=== PATIENT | female | born 1935 | race Caucasian/White ===

== ENCOUNTER → 2016-12-29 | Outpatient (CLI) | payer OTHER | LOC: FIMAGING 08:12 | PROVIDERS: ATTEND Physician Assistant Medical | DX: Z12.31 Encounter for screening mammogram for malignant neoplasm of breast (principal) | CPT/HCPCS: G0202 ==

== ENCOUNTER 2017-11-13 14:28 | Inpatient (IN) | payer OTHER ==
[2017-11-13] MEDS ORDERED: ceFAZolin 2 GM in NS 100 ML IV ONE (17:11)
[2017-11-13 17:18] LABS: PLATELET COUNT 309 10^3/uL (150-400)
[2017-11-13] MEDS ORDERED: IOPAMIDOL (ISOVUE 370) 100 ML BTL IV ONE (17:23)
[2017-11-13] MEDS ORDERED: NS 1,000 ML IV ONE (17:49)
[2017-11-13] MEDS ORDERED: ceFAZolin 2 GM/DEXTROSE 100 ML IV ONE (18:00)
--- NOTE | 2017-11-13 18:06 | EDPHY ---
H & P Stated Complaint: mech fall R shoulder/throat injury - Personal History Current Tetanus/Diphtheria Vaccine: Unsure Current Tetanus Diphtheria and Acellular Pertussis (TDAP): Unsure - Medical/Surgical History Hx Asthma: No Hx Chronic Respiratory Disease: No Hx Diabetes: Yes Hx Cardiac Disease: Yes Hx Renal Disease: No Hx Alcoholism: No Hx HIV/AIDS: No Hx Splenectomy or Spleen Trauma: No Other PMH: HTN, HYPERLIPIDS. HYST. MACULAR DEGENERATION - Social History Smoking Status: Never smoked Time Seen by Provider: 11/13/17 17:00 HPI/ROS: Chief complaint: Neck injury History of present illness: This is an 82-year-old female who presents to the emergency department for evaluation of a neck injury. Patient tripped and fell onto her right arm and then onto a pair of garden nathalie that stabbed her in the neck. She sustained a small cut to the anterior neck at the level of the thyroid. Initially she felt some gurgling. The wound is sealed itself back up. However whenever she speaks the area starts to swell up. She denies other associated symptoms including no other injuries. No cough, no trouble breathing , no trouble swallowing. Her tetanus is up-to-date. Review of systems: A 10 point review of systems was obtained and other than described above (Hai Singh) - Physical Exam Exam: General Appearance: Alert, nontoxic Eyes: PERRLA ENT: Patient is speaking well. No drooling. No coughing. No blood in the oropharynx. Respiratory: Lungs clear to auscultation bilaterally. Cardiac: Regular rate and rhythm. Gastrointestinal: Soft, nondistended, nontender. Neurological: Alert and oriented x4. Strength and sensation intact and symmetrical. Skin: Patient has a small less than 1 cm puncture wound to the anterior neck at the level of the thyroid. There is surrounding soft tissue edema. 1 cm laceration over the olecranon region of the right elbow. No foreign body contamination appreciated. Musculoskeletal: The neck is supple. Spine is nontender to palpation. Patient moving extremities well. (Hai Singh) Constitutional: Initial Vital Signs Temperature (C) 36.6 C 11/13/17 14:41 Heart Rate 109 H 11/13/17 14:41 Respiratory Rate 16 11/13/17 14:41 Blood Pressure 181/95 H 11/13/17 14:41 O2 Sat (%) 96 11/13/17 14:41 O2 Delivery Mode Room Air Allergies/Adverse Reactions: No Known Allergies Allergy (Unverified 11/13/17 14:40) Home Medications: Medication Instructions Recorded Aspirin [Aspirin 81mg (*)] 81 mg PO DAILY 11/13/17 Losartan Potassium [Losartan 25 mg PO DAILY 11/13/17 Potassium] Rosuvastatin Calcium [Rosuvastatin 5 mg PO DAILY 11/13/17 Calcium] Sulfamethoxazole/Trimethoprim 1 tab PO BID 11/13/17 [Sulfamethoxazole-Tmp Ds Tablet] Triamterene/Hctz 37.5/25 0.5 mg PO DAILY 11/13/17 [Maxzide-25 (*)] amLODIPine BESYLATE [Norvasc 5 mg 5 mg PO DAILY 11/13/17 (*)] metFORMIN HCL [Metformin HCl] 1,000 mg PO BIDMEAL 11/13/17 Medical Decision Making - Diagnostics Imaging: Discussed imaging studies w/ call worker person Radiologist, I viewed and interpreted images myself - Diagnostics Imaging Results: Imaging Impressions Neck CTA 11/13/17 17:05 Impression: 1. Puncture wound anterior midline neck soft tissues at the level of the subglottic trachea, with likely puncture site at this region. 2. No evidence of arterial or venous vascular injury. 3. Bilateral carotid atherosclerotic disease resulting in mild 40-50% diameter stenosis. 4. Bilateral external carotid artery branches are just lateral to the puncture site, without evidence of active extravasation or focal neck hematoma. 5. Probably benign right thyroid nodule. 6. Extensive pneumomediastinum extending from the skull base through the neck surrounding the visceral space and extending into the mediastinum at the tracheal bifurcation. Findings and recommendations discussed with Emergency Department Physician Assembler [employer], EDGARD Ordaz, at 1810 hours, on November 13, 2017. Final report concurs with initial preliminary interpretation. Measurement of carotid stenosis is based on the residual internal carotid diameter with [place] Symptomatic Carotid Endarterectomy Trial (NASCET) based stenosis levels. A test result has been communicated to a licensed care provider and documented in the [employer] Critical Result system on 11/13/2017 18:24, Message ID [id number]. Esophagram Cervical 11/13/17 17:12 Impression: No evidence of esophageal laceration or tear in the neck or upper thoracic region. Chest X-Ray 11/13/17 18:12 Impression: 1. No pneumothorax. 2. Extensive pneumomediastinum extending from the neck through the entire chest. Humerus X-Ray 11/13/17 18:16 Impression: No fracture of the right humerus. Shoulder X-Ray 11/13/17 18:16 Impression: No definite fracture of the right shoulder. Procedures: Procedure: Laceration repair. Verbal consent was obtained from the patient. The 1 cm laceration on the right elbow was anesthetized in the usual fashion. The wound was irrigated, draped and explored to its base with a gloved finger. There were no deep structures involved. No tendon injury was identified. The wound was repaired with 4 0 Ethilon, 2 simple interrupted sutures. The wound repair was simple. The procedure was performed by myself. (Hai Singh) ED Course/Re-evaluation: The patient was evaluated and managed by the physician's assistant clinical director. My cosignature indicates that I reviewed the chart and I agree with the findings and plan of care as documented. I am the secondary supervising physician. ( Valencia Castro) Upon initial evaluation with identification of concern for neck injury ENT was consulted. Rosa EVERETT and Dr. Evans Newsome immediately came to the emergency room to evaluate patient. They scoped the patient. They are recommending a CT AV and barium swallow. This was obtained. Small amount of blood and trachea. Large pneumomediastinum. Chest x-ray further obtained to further characterize this which does show large amount of air. Patient also injured her right arm, x-rays negative. Laceration the right arm is repaired. She remained stable. She will be admitted to the Trauma Services under the care of Dr. Colby Villalta. Plan has been discussed with patient and family who voiced understanding and agreement with it. (Hai Singh) Differential Diagnosis: Included but not limited to soft tissue injury, vascular injury, tracheal injury , esophageal injury (Hai Singh) - Data Points Laboratory Results: Laboratory Results 11/13/17 17:10 11/13/17 11/13/17 17:14 17:10 WBC 13.71 10^3/uL H 10^3/uL (3.80-9.50) RBC 4.60 10^6/uL 10^6/uL (4.18-5.33) Hgb 13.5 g/dL g/dL (12.6-16.3) POC Hgb 15.3 gm/dL gm/dL (12.6-16.3) Hct 40.6 % % (38.0-47.0) POC Hct 45 % % (38-47) MCV 88.3 fL fL (81.5-99.8) MCH 29.3 pg pg (27.9-34.1) MCHC 33.3 g/dL g/dL (32.4-36.7) RDW 14.2 % % (11.5-15.2) Plt Count 309 10^3/uL 10^3/uL (150-400) MPV 9.8 fL fL (8.7-11.7) Neut % (Auto) 80.1 % H % (39.3-74.2) Lymph % (Auto) 13.3 % L % (15.0-45.0) [place] % (Auto) 5.6 % % (4.5-13.0) Eos % (Auto) 0.3 % L % (0.6-7.6) Baso % (Auto) 0.3 % % (0.3-1.7) Nucleat RBC Rel Count 0.0 % % (0.0-0.2) Absolute Neuts (auto) 10.98 10^3/uL H 10^3/uL (1.70-6.50) Absolute Lymphs (auto) 1.82 10^3/uL 10^3/uL (1.00-3.00) Absolute Monos (auto) 0.77 10^3/uL 10^3/uL (0.30-0.80) Absolute Eos (auto) 0.04 10^3/uL 10^3/uL (0.03-0.40) Absolute Basos (auto) 0.04 10^3/uL 10^3/uL (0.02-0.10) Absolute Nucleated RBC 0.00 10^3/uL 10^3/uL (0-0.01) Immature Gran % 0.4 % % (0.0-1.1) Immature Gran # 0.06 10^3/uL 10^3/uL (0.00-0.10) POC Sodium 137 mEq/L mEq/L (135-145) POC Potassium 3.7 mEq/L mEq/L (3.3-5.0) POC Chloride 99 mEq/L mEq/L (97-110) POC BUN 24 mg/dL H mg/dL (7-23) POC Creatinine 1.2 mg/dL H mg/dL (0.6-1.0) POC Glucose 135 mg/dL H mg/dL (70-100) Medications Given: Bacitracin (Bacitracin Ointment Tube) 1 mor TP BID NAVIN Stop: 12/13/17 20:59 Last Admin: 11/13/17 23:16 Dose: Not Given Discontinued Medications Cefazolin Sodium 2 gm/ Sodium (Chloride) 100 mls @ 200 mls/hr IV EDNOW ONE PRN Reason: Protocol Stop: 11/13/17 17:40 Last Admin: 11/13/17 18:29 Dose: 100 mls Sodium Chloride (Ns) 1,000 mls @ 0 mls/hr IV ONCE ONE PRN Reason: Wide Open Stop: 11/13/17 17:50 Last Admin: 11/13/17 18:29 Dose: 1,000 mls Cefazolin Sodium/Dextrose (Ancef 2 Gm) 100 mls @ 200 mls/hr IV ONCE ONE Stop: 11/13/17 18:29 Last Admin: 11/13/17 23:16 Dose: Not Given Point of Care Test Results: Chemistry 11/13/17 17:14 POC Sodium 137 mEq/L mEq/L (135-145) POC Potassium 3.7 mEq/L mEq/L (3.3-5.0) POC Chloride 99 mEq/L mEq/L (97-110) POC BUN 24 mg/dL H mg/dL (7-23) POC Creatinine 1.2 mg/dL H mg/dL (0.6-1.0) POC Glucose 135 mg/dL H mg/dL (70-100) ISTAT H&H 11/13/17 17:14 POC Hgb 15.3 gm/dL gm/dL (12.6-16.3) POC Hct 45 % % (38-47) Departure - Departure Disposition: [facility] Inpatient Acute Clinical Impression: Pneumomediastinum Puncture wound of trachea Qualifiers: Encounter type: initial encounter Qualified Code(s): S11.023A - Puncture wound without foreign body of trachea, initial encounter Elbow laceration Qualifiers: Encounter type: initial encounter Laterality: right Qualified Code(s): S51.011A - Laceration without foreign body of right elbow, initial encounter Condition: Fair
[2017-11-13] MEDS ORDERED: ONDANSETRON 4 MG/2 ML VIAL IVP PRN (18:57)
[2017-11-13] MEDS ORDERED: D5W 1/2 NS W/ 20 KCl/L 1,000 ML IV SCH (19:00)
--- NOTE | 2017-11-13 19:07 | PDGENHP ---
History and Physical - Chief Complaint fall, SW to neck - History of Present Illness 82yo female, visually impaired, presents s/p self-inflicted SW to neck. Briefly , patient was in her garden holding her nathalie. She cannot see well and stumbled falling mostly onto her right side but does state that she rolled somewhat anteriorly with the fall and did impale herself on her nathalie. She was initially unaware of the injury and did not bring it to anyone's attention until she caller her daughter c/o some "gurgling" when she talked. [place] daughter rushed to mother, noted the injury and brought here her for eval. In the ED, consultation from ENT was immediately sought and the patient was scoped where a small anterior injury was identified, no posterior injury noted and the gurgling had stopped. She also underwent CTA and barium swallow prior to my consultation. On my consultation, the patients airway is intact, she is breathing appropriately and unlabored and her circulation is adequate. She c/o R shoulder pain. She states that the "gurgling" she was experiencing previously has resolved and that she has no current complaints. History Information - Allergies/Home Medication List Allergies/Adverse Reactions: No Known Allergies Allergy (Unverified 11/13/17 14:40) Home Medications: Crestor 10/30/13 [Last Taken Unknown] Metformin Sr 10/30/13 [Last Taken Unknown] Triamterene 10/30/13 [Last Taken Unknown] Bactrim DS 11/13/17 [Last Taken Unknown] Lovastatin 11/13/17 [Last Taken Unknown] I have personally reviewed and updated: family history, medical history, social history, surgical history Past Medical History: HTN, HLD, macular degeneration - Surgical History Additional surgical history: hyst - Family History Positive for: non-pertinent - Social History Smoking Status: Never smoked Alcohol Use: Sober Drug Use: None Additional social history: lives alone, walks a lot, does not drive 2/2 vision Review of Systems Review of Systems: ROS: 10pt was reviewed & negative except for what was stated in HPI & below Physical Exam Physical Exam: Temp Pulse Resp BP Pulse Ox 36.6 C 102 H 18 173/106 H 97 11/13/17 14:41 11/13/17 18:30 11/13/17 18:30 11/13/17 18:30 11/13/17 18:43 O2 (L/minute) 2 Constitutional: no apparent distress, appears nourished, not in pain Eyes: PERRL, anicteric sclera, EOMI Ears, Nose, Mouth, Throat: moist mucous membranes, hearing normal, ears appear normal, no oral mucosal ulcers, other (small ant neck lac 1cm, zone 2, no gurgling, no hematoma, no voice changes, no dysphagia, no crepitus) Cardiovascular: regular rate and rhythym, systolic murmur, No edema Respiratory: no respiratory distress, no rales or rhonchi, clear to auscultation Gastrointestinal: normoactive bowel sounds, soft, non-tender abdomen, no palpable masses Genitourinary: no bladder fullness, no bladder tenderness Skin: warm, normal color, no rashes or abrasions, no fluctuance, no induration, No mottled Musculoskeletal: full muscle strength, no muscle tenderness, normal joint ROM, no joint effusions Psychiatric: interacting appropriately, not anxious, not encephalopathic, thought process linear Lymph, Heme, Immunologic: no cervical LAD, no supraclavicular LAD Lab Data & Imaging Review 11/13/17 17:10 WBC 13.71 10^3/uL (3.80-9.50) H 11/13/17 17:10 RBC 4.60 10^6/uL (4.18-5.33) 11/13/17 17:10 Hgb 13.5 g/dL (12.6-16.3) 11/13/17 17:10 POC Hgb 15.3 gm/dL (12.6-16.3) 11/13/17 17:14 Hct 40.6 % (38.0-47.0) 11/13/17 17:10 POC Hct 45 % (38-47) 11/13/17 17:14 MCV 88.3 fL (81.5-99.8) 11/13/17 17:10 MCH 29.3 pg (27.9-34.1) 11/13/17 17:10 MCHC 33.3 g/dL (32.4-36.7) 11/13/17 17:10 RDW 14.2 % (11.5-15.2) 11/13/17 17:10 Plt Count 309 10^3/uL (150-400) 11/13/17 17:10 MPV 9.8 fL (8.7-11.7) 11/13/17 17:10 Neut % (Auto) 80.1 % (39.3-74.2) H 11/13/17 17:10 Lymph % (Auto) 13.3 % (15.0-45.0) L 11/13/17 17:10 [place] % (Auto) 5.6 % (4.5-13.0) 11/13/17 17:10 Eos % (Auto) 0.3 % (0.6-7.6) L 11/13/17 17:10 Baso % (Auto) 0.3 % (0.3-1.7) 11/13/17 17:10 Nucleat RBC Rel Count 0.0 % (0.0-0.2) 11/13/17 17:10 Absolute Neuts (auto) 10.98 10^3/uL (1.70-6.50) H 11/13/17 17:10 Absolute Lymphs (auto) 1.82 10^3/uL (1.00-3.00) 11/13/17 17:10 Absolute Monos (auto) 0.77 10^3/uL (0.30-0.80) 11/13/17 17:10 Absolute Eos (auto) 0.04 10^3/uL (0.03-0.40) 11/13/17 17:10 Absolute Basos (auto) 0.04 10^3/uL (0.02-0.10) 11/13/17 17:10 Absolute Nucleated RBC 0.00 10^3/uL (0-0.01) 11/13/17 17:10 Immature Gran % 0.4 % (0.0-1.1) 11/13/17 17:10 Immature Gran # 0.06 10^3/uL (0.00-0.10) 11/13/17 17:10 POC Sodium 137 mEq/L (135-145) 11/13/17 17:14 POC Potassium 3.7 mEq/L (3.3-5.0) 11/13/17 17:14 POC Chloride 99 mEq/L (97-110) 11/13/17 17:14 POC BUN 24 mg/dL (7-23) H 11/13/17 17:14 POC Creatinine 1.2 mg/dL (0.6-1.0) H 11/13/17 17:14 POC Glucose 135 mg/dL (70-100) H 11/13/17 17:14 Visualized and Interpreted imaging results: Yes Interpretation: CTA: extensive subq emphysema, no apparent tracheal, esophageal or vascular injury. Esophogram: no esophageal injury. CXR: subq emphysema. XR shoulder: negative. XR humerus: negative Assessment & Plan Assessment: 82yo female s/p self-inflicted SW to ant neck with platysmal penetration, tracheal injury Plan: Patient had evaluation per ENT in the ED, was scoped and the injury was found to be stable. On my eval, the patient is stable and has no hard or soft signs of tracheal, esophageal, or vascular injury - Will plan to admit the patient to the trauma service for monitoring given significant amt of subq emphysema. No positive pressure, nasal canula ok - esophogram was negative but will keep patient NPO until the AM. If has dysphagia in AM will need scope - abd given injury - avoid using voice, "gurgling" sensation has stopped but needs close monitoring - CXR in AM - if decompensates overnight may need exploration and closure.ENT following - IM consultation given age and comorbidities.
[2017-11-13] MEDS ORDERED: D50W 25 GM/50 ML VIAL IVP PRN (22:09)
[2017-11-13] MEDS ORDERED: hydrALAZINE 20 MG/ML VIAL IVP PRN (22:09)
[2017-11-13] MEDS: BACITRACIN ZINC 14.2 GM OINTTUBE TP SCH (23:16)
--- NOTE | 2017-11-13 23:38 | PDMN ---
Medical Necessity Medical necessity: C/M review: est. > 2 MN LOS for eval and TX of acute unintentional self inflicted stab wound to anterior neck just prior to this admission with platysmal penetration, tracheal injury acute and persistent significant amount of subcutaneous emphysema, requiring ENT consult / evaluation , IV fluids, IV Ceftriaxone - all in in ED, CTA neck - showed extensive subcutaneous emphysema, barium swallow (esophogram) negative, planned Internal Medicine (Hospitalist) consult), Rehab eval consult, CXR 11/14/2017, if patient decompensates overnight may need surgical exploration and closure, ongoing NPO , neuro checks, close monitoring, pulse oximetry, supplemental O2, avoid using voice, close monitoring, acute inpt PT/T./ST, comorbid history acute unintentional self inflicted stab wound to anterior neck - patient was in her garden, cannot see well, stumbled on her right side but rolled somewhat with the fall and did impaled herself on her nathalie just prior to this admission, hypertension, hyperlipidemia, macular degeneration per H/P.
--- NOTE | 2017-11-13 23:44 | GCON ---
[f rep st] CONSULTATION DATE OF CONSULTATION: 11/13/2017 REFERRING PHYSICIAN: Colby Villalta MD REASON FOR CONSULTATION: Medical management of hypertension and diabetes. HISTORY OF PRESENT ILLNESS: A pleasant 82-year-old female with history of poor vision, hypertension and diabetes. She was gardening and stumbled due to poor eyesight, falling mainly on the right side. She was holding nathalie and impaled herself in the neck. She was initially unaware of the injury and did not mention it to anyone until she called her daughter and noted some gurgling when talking. Her daughter rushed her to the emergency room. In the ER, ENT consultation was immediately sought and she was scoped, with a small penetrating injury to her anterior neck platysmal muscle. She was complaining of right shoulder pain in the ER. No longer having a gurgling sensation. REVIEW OF SYSTEMS: I completed a 10-point review of systems, negative except as noted in HPI. PAST MEDICAL HISTORY: Diabetes, last A1c was 6.3, not on insulin; hypertension ; hyperlipidemia. PAST SURGICAL HISTORY: Hysterectomy, bladder repair. SOCIAL HISTORY: She walks 3 times a week. She lives alone in [place]. Two of her daughters live close by. No alcohol, tobacco, or illicits. FAMILY HISTORY: Noncontributory. ALLERGIES: None known drug allergies. HOME MEDICATIONS: Bactrim b.i.d., rosuvastatin 5 mg daily, Norvasc 5 mg daily, triamterene/HCTZ 37.5/25 one-half daily, aspirin 81 mg daily, metformin 1000 mg b.i.d., losartan 25 mg daily. PHYSICAL EXAM: VITAL SIGNS: Temperature 36.3, blood pressure is 167/90, heart rate 87, respirations 16, 94% on 2 L. GENERAL: She is well appearing, lying in bed, in no acute distress. HEENT: PERRLA. Anterior neck laceration is dressed. She has no gurgling or swelling. No appreciable crepitus. CV: Regular rate and rhythm. Mild systolic murmur. No lower extremity edema. LUNGS: Clear anteriorly. ABDOMEN: Soft, nontender, nondistended. Positive bowel sounds. : No Ortiz. MUSCULOSKELETAL: 5/5 upper and lower extremity strength. SKIN: Has a right elbow laceration that is repaired and now dressed. PSYCH: She is alert, oriented x3. She is answering with yes or no questions, is advised to not use her voice. LABS: WBC 13, hemoglobin 13, hematocrit 40, platelets 309. Sodium 137, potassium 3.9, chloride 99; BUN 29; glucose 135; creatinine is 1.2 (which is her baseline). IMAGING: Shoulder x-ray: No fracture. Humerus x-ray: No fracture. Chest x- ray is personally reviewed by me. No pneumothorax. Extensive pneumoperitoneum. CTA: Puncture wound anterior midline neck soft tissues at the level of the subglottic trachea, with likely puncture at this region. No evidence of arterial/venous vascular injury. Bilateral carotid atherosclerotic disease. Extensive pneumomediastinum, from the skull base through the neck, into the mediastinum. Cervical esophagram: No evidence of esophageal laceration. ASSESSMENT/PLAN: 1. Self-inflicted wound to the anterior neck with platysmal penetration: ENT evaluated, scoped in the ED, was found to be stable. No evidence of tracheal, esophageal or vascular injury. Does have evidence of subcutaneous emphysema. Negative esophagram. Will be n.p.o. until midnight. If has dysphagia, will need a scope. She is advised to avoid using her voice. Repeat x-ray in the morning. 2. Diabetes. Sliding scale while here. Hold metformin. 3. Hypertension. We will hold orals, given n.p.o. status. Can provide p.r.n. hydralazine IV if needed. 4. Hyperlipidemia. Resume statin once taking p.o. 5. Disposition: Thank you for this consult. We will follow along. Please call if questions. /[id number]/MODL MTDD
[2017-11-14] MEDS ORDERED: ROSUVASTATIN CALCIUM 10 MG TAB PO SCH (09:00)
[2017-11-14] MEDS ORDERED: TRIAMTERENE/HCTZ 37.5/25 1 EACH TAB PO SCH (09:00)
[2017-11-14] MEDS ORDERED: ASPIRIN 81 MG CHEWABLE TAB PO SCH (09:00)
[2017-11-14] MEDS ORDERED: LOSARTAN POTASSIUM 25 MG TAB PO SCH (09:00)
[2017-11-14] MEDS ORDERED: amLODIPine BESYLATE 5 MG TAB PO SCH (09:00)
--- NOTE | 2017-11-14 09:53 | SOAPPROG ---
SOAP Progress Note Assessment/Plan: Assessment: TERTIARY SURVEY 82 FEMALE WITH SELF INFLICTED SW TO TRACHEA AFTER FALL AFEBRILE/ STABLE VS/ DOING WELL HEENT DECREASED SUBCUT EMPHESYMA, VOICE OK CHEST CLEAR AND SYMMETRIC, CXR STABLE ABD SOFT, NONTENDER EXTREM OK NEURO INTACT, SYMMETRIC STABLE, WANTS TO GO HOME Plan:START CLEARS, HOME TODAY ON ABX 11/14/17 09:49 Objective: Vital Signs Temp Pulse Resp BP Pulse Ox 36.9 C 82 15 141/72 H 91 L 11/14/17 07:52 11/14/17 07:52 11/14/17 07:52 11/14/17 07:52 11/14/17 07:52 11/13/17 11/14/17 11/15/17 05:59 05:59 05:59 Output Total 200 Balance -200 ICD10 Worksheet Patient Problems: Problems Problem Status Onset Elbow laceration Acute Pneumomediastinum Acute Puncture wound of trachea Acute
[2017-11-14] MEDS: BACITRACIN ZINC 14.2 GM OINTTUBE TP SCH (10:34)
[2017-11-14] MEDS: INSULIN LISPRO 100 UNIT/ML SC SCH ×2 (10:35→12:40)
--- NOTE | 2017-11-14 13:06 | HOSPPROG ---
Hospitalist Progress Note Assessment/Plan: Patient is an 82-year-old female with history of poor vision, hypertension, diabetes. Due to her poor eyesight she stumbled while gardening landing on her right side. She was holding nathalie and held herself in the neck area. Today is my 1st encounter with the patient. Chart reviewed. The hospitalist was asked to see her to manage her hypertension and diabetes. * self-inflicted wound to the neck causing a tracheal injury -she has evidence of subcutaneous emphysema -repeat x-ray shows a slight increase in basilar atelectasis -care per trauma * diabetes -sliding scale *htn -bp a bit elevated this morning *recent UTI -was being treated w Bactrim -encouraged to stay well hydrated while on this medication *Plan; dc per trauma, eating cl liquids, feeling well Subjective: Susanna Bucio is feeling well, anxious to go home Objective: Vital Signs Temp Pulse Resp BP Pulse Ox 37.1 C 77 16 142/78 H 90 L 11/14/17 12:00 11/14/17 12:00 11/14/17 12:00 11/14/17 12:00 11/14/17 12:00 11/13/17 11/14/17 11/15/17 05:59 05:59 05:59 Output Total 200 Balance -200 - Physical Exam Constitutional: no apparent distress, appears nourished, not in pain Eyes: PERRL Ears, Nose, Mouth, Throat: hearing normal, other (subcutaneous air around the upper neck area) Cardiovascular: regular rate and rhythym Respiratory: no respiratory distress Skin: warm Musculoskeletal: full muscle strength Neurologic: AAOx3 Psychiatric: interacting appropriately ICD10 Worksheet Patient Problems: Problems Problem Status Onset Elbow laceration Acute Pneumomediastinum Acute Puncture wound of trachea Acute
[2017-11-14 15:28] VITALS: BP 165/85
--- NOTE | 2017-11-14 15:59 | ASMTCMCOM ---
CM Note CM Note Notes: Pt admitted after accidently stabbing herself in neck with garden nathalie s/p fall. She will DC today and has no needs. Date Signed: 11/14/2017 03:58 PM Electronically Signed By:Lisa Resendiz LCSW
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
== END 2017-11-14 17:30 | disposition home or self-care (01) | DRG 184 ==
LOC: OBSVTOIN 18:28 → F3N 20:50
PROVIDERS: ADMIT Surgery; ATTEND Surgery
PROC: 0BJ18ZZ Inspection of Trachea, Via Natural or Artificial Opening Endoscopic (ICD-10-PCS; principal; 2017-11-13)
PROC: 0HQDXZZ Repair Right Lower Arm Skin, External Approach (ICD-10-PCS; 2017-11-13)
DX: S11.02 Open wound of trachea (principal); T79.7XXA Traumatic subcutaneous emphysema, initial encounter; S51.011A Laceration without foreign body of right elbow, initial encounter; Y93.H2 Activity, gardening and landscaping; Y92.007 Garden or yard of unspecified non-institutional (private) residence as the place of occurrence of the external cause; W01.0XXA Fall on same level from slipping, tripping and stumbling without subsequent striking against object, initial encounter; W27.1XXA Contact with garden tool, initial encounter; I10 Essential (primary) hypertension; E78.5 Hyperlipidemia, unspecified; E11.9 Type 2 diabetes mellitus without complications; H35.30 Unspecified macular degeneration; I65.23 Occlusion and stenosis of bilateral carotid arteries; Z79.4 Long term (current) use of insulin; Z87.440 Personal history of urinary (tract) infections
CPT/HCPCS: 82435-PO; 82565-PO; 82947-PO; 84132-PO; 84295-PO; 84520-PO; 85014-PO; 92610-GN; 96365; 97161-GP; 97165-GO; G8978-GP-CH; G8979-GP-CH; G8980-GP-CH; G8987-GO-CI; G8988-GO-CI; G8989-GO-CI; G8996-GN-CH; G8997-GN-CH; G8998-GN-CH; J0690; Q9967

== ENCOUNTER → 2018-04-10 | Outpatient (CLI) | payer OTHER | LOC: FIMAGING 07:55 | PROVIDERS: ATTEND Obstetrics & Gynecology Gynecology | DX: Z12.31 Encounter for screening mammogram for malignant neoplasm of breast (principal) ==